=== PATIENT | female | born 1955 | race Caucasian/White ===

== ENCOUNTER 2017-01-10 16:24 | Observation (INO) ==
[2017-01-10 17:05] LABS: URINE CULTURE PL NEEDED? NO
[2017-01-10 17:13] LABS: BILIRUBIN URINE NEGATIVE (NEGATIVE); BLOOD URINE TRACE (NEGATIVE); CLARITY CLEAR (CLEAR); COLOR YELLOW; GLUCOSE URINE NEGATIVE (NEGATIVE); LEUKOCYTES URINE NEGATIVE (NEGATIVE); NITRITE URINE NEGATIVE (NEGATIVE); PROTEIN URINE NEGATIVE (NEGATIVE); UROBILINOGEN URINE NORMAL
[2017-01-10 17:18] LABS: URINE EPITHELIAL CELLS >10 /HPF (<10); URINE RBC <10 /HPF (<10); URINE WBC <10 /HPF (<10)
[2017-01-10 17:19] LABS: URINE CAST NONE SEEN /LPF; URINE CRYSTAL NONE SEEN /HPF; URINE SOURCE CLEAN CATCH
[2017-01-10] MEDS ORDERED: ASPIRIN PO ONE (18:09)
[2017-01-10 18:54] LABS: MANUAL DIFF NEEDED? NO
[2017-01-10 18:56] LABS: BASO% 0.2 % (0.0-0.8); EOS# 0.06 X1000 (0.0-0.7); EOS% 0.7 % (0.0-10.0); HEMATOCRIT 41.9 % (37.0-47.0); HEMOGLOBIN 14.4 g/dL (12.0-16.0); IMM GRAN# 0.01 X1000 (0.0-0.04); IMM GRAN% 0.1 % (0.0-0.5); LYMPH# 1.93 X1000 (1.2-3.4); MCH 30.4 PG (27-31); MCHC 34.4 g/dL (33-37); MCV 88.4 FL (81-99); MPV 9.1 FL (7.4-10.4); PLT 206 X1000 (130-400); RBC 4.74 XMIL (4.2-5.4)
[2017-01-10 19:27] LABS: AGAP 8; ALBUMIN 4.4 g/dL (3.5-5.0); ALKALINE PHOSPHATASE 85 U/L (32-104); BUN 9 mg/dL (8-22); CHLORIDE 104 mmol/L (98-107); COSMO 282; GOT 24 U/L (10-30); GPT 24 U/L (10-36); POTASSIUM 3.5 mmol/L (3.5-5.1); SODIUM 142 mmol/L (136-145); TCO2 30 mmol/L (25-35); TOTAL PROTEIN 6.8 g/dL (6.3-8.3)
[2017-01-10] MEDS ORDERED: NITROGLYCERIN LINGUAL SPRAY SL ONE (19:54)
[2017-01-11] MEDS ORDERED: MOTRIN PO ONE (01:48)
[2017-01-11 07:21] VITALS: BP 131/76
== END 2017-01-11 10:55 | disposition home or self-care (01) ==
LOC: P.ED 16:24 → INTOOBSV 16:25 → P.MEDSURG 16:25
PROVIDERS: ADMIT Family Medicine; ATTEND Family Medicine